=== PATIENT | female | born 1995 | race Caucasian/White ===

== ENCOUNTER 2017-01-30 20:00 | Observation (INO) | payer BC ==
[~2017-01-30] VITALS: Ht 177.8 cm; Wt 71.1 kg
[2017-01-30] MEDS ORDERED: RACEPINEPHRINE INH 2.25%, 0.5ML ONE (20:22)
[2017-01-30] MEDS ORDERED: LORazepam 2 MG/ML, 1ML ONE (20:27)
[2017-01-30] MEDS ORDERED: ALBUTEROL SULFATE 2.5 MG/3 ML NPPB SCH (20:30)
[2017-01-30] MEDS ORDERED: LORazepam 2 MG/ML, 1ML IVP ONE (20:30)
[2017-01-30] MEDS ORDERED: SODIUM CHLORIDE FLUSH 10ML SYR IVF ONE (20:30)
[2017-01-30 20:32] LABS: HEMATOCRIT 43.4 % (34.6-47.8); HEMOGLOBIN 14.8 g/dL (11.7-16.4); WHITE BLOOD COUNT 13.8 x10^3/uL (4.5-13.2)
[2017-01-30 20:43] LABS: BLOOD UREA NITROGEN 14 mg/dL (7-18)
[2017-01-30] MEDS ORDERED: RACEPINEPHRINE INH 2.25%, 0.5ML NPPB PRN (21:00)
[2017-01-30] MEDS ORDERED: DIPHENHYDRAMINE 50 MG/ML, 1ML ONE (21:17)
[2017-01-30] MEDS ORDERED: FAMOTIDINE 20 MG TABLET PO ONE (21:30)
[2017-01-30] MEDS ORDERED: DIPHENHYDRAMINE 50 MG/ML, 1ML IVPush ONE (21:30)
[2017-01-30] MEDS ORDERED: DEXAMETHASONE 4 MG/ML, 1ML IVPush ONE (21:30)
[2017-01-30] MEDS ORDERED: FAMOTIDINE 20 MG TABLET ONE (21:38)
[2017-01-30] MEDS ORDERED: SODIUM CHLORIDE 0.9% 1,000 ML IV ONE (22:52)
[2017-01-30] MEDS ORDERED: SODIUM CHLORIDE FLUSH 10ML SYR IVF PRN (23:00)
[2017-01-30] MEDS ORDERED: ACETAMINOPHEN 325 MG TABLET PO PRN (23:30)
[2017-01-30] MEDS ORDERED: FAMOTIDINE 20 MG/2 ML IVPush ONE (23:30)
[2017-01-30] MEDS ORDERED: TEMAZEPAM 15 MG CAPSULE PO PRN (23:30)
[2017-01-31 00:15] VITALS: BP 99/69
[2017-01-31] MEDS ORDERED: POTASSIUM CHLORIDE 20 MEQ TAB.ER.PRT PO ONE (00:30)
[2017-01-31] MEDS: RACEPINEPHRINE INH 2.25%, 0.5ML NPPB PRN ×4 (00:40→14:40)
[2017-01-31 04:01] VITALS: BP 111/68
[2017-01-31] MEDS: LORazepam 2 MG/ML, 1ML IVPush PRN ×3 (04:05→13:50)
[2017-01-31] MEDS ORDERED: methylPREDNISolone SOD SUCC 125 MG/2 ML ONE (04:34)
[2017-01-31] MEDS: methylPREDNISolone SOD SUCC 125 MG/2 ML IVPush SCH ×2 (04:35→05:34)
[2017-01-31] MEDS ORDERED: FAMOTIDINE 20 MG/2 ML IVPush SCH (05:26)
[2017-01-31] MEDS: CEFTRIAXONE PMX 1GM/50ML 50 ML IV SCH ×2 (05:34→17:48)
[2017-01-31] MEDS: AZITHROMYCIN 500 MG in SODIUM CHLORIDE 0.9% 250 ML IV SCH (05:47)
[2017-01-31] MEDS ORDERED: LORazepam 2 MG/ML, 1ML IVPush ONE (06:00)
[2017-01-31] MEDS ORDERED: methylPREDNISolone SOD SUCC 125 MG/2 ML IVPush ONE (08:00)
[2017-01-31 08:10] LABS: BLOOD UREA NITROGEN 12 mg/dL (7-18)
[2017-01-31] MEDS: LORATADINE 10 MG TABLET PO SCH (10:45)
[2017-01-31 14:15] VITALS: BP 107/64
[2017-01-31] MEDS: DIAZEPAM 5 MG/ML, 10ML VIAL IVPush PRN ×2 (15:51→23:04)
[2017-01-31] MEDS: DIPHENHYDRAMINE 50 MG/ML, 1ML IVPush PRN (17:13)
[2017-01-31] MEDS: ONDANSETRON 2MG/ML, 2ML IVPush PRN (20:56)
[2017-02-01] MEDS: DIPHENHYDRAMINE 50 MG/ML, 1ML IVPush PRN ×2 (03:09→15:02)
[2017-02-01] MEDS: LORazepam 2 MG/ML, 1ML IVPush PRN ×2 (03:21→14:21)
[2017-02-01 03:30] VITALS: BP 96/57
[2017-02-01] MEDS: CEFTRIAXONE PMX 1GM/50ML 50 ML IV SCH (05:30)
[2017-02-01 06:06] LABS: BLOOD UREA NITROGEN 13 mg/dL (7-18)
[2017-02-01 06:12] LABS: HEMATOCRIT 38.8 % (34.6-47.8); HEMOGLOBIN 13.1 g/dL (11.7-16.4); WHITE BLOOD COUNT 18.6 x10^3/uL (4.5-13.2)
[2017-02-01] MEDS: AZITHROMYCIN 500 MG in SODIUM CHLORIDE 0.9% 250 ML IV SCH (06:15)
[2017-02-01 07:03] VITALS: BP 96/57
[2017-02-01] MEDS: LORATADINE 10 MG TABLET PO SCH (10:38)
[2017-02-01 13:41] VITALS: BP 110/71
[2017-02-01] MEDS: ONDANSETRON 2MG/ML, 2ML IVPush PRN (14:10)
[2017-02-01] MEDS ORDERED: ONDA4TAB10 PO (14:54)
== END 2017-02-01 17:46 | disposition home or self-care (01) ==
LOC: ED 22:55 → EDIP 23:00 → INTOOBSV 23:00 → 4EST 01-31 00:09 → CCU 01-31 04:50 → 3NE 01-31 11:56
PROVIDERS: ADMIT Family Medicine; ATTEND Family Medicine
DX: J96.00 Acute respiratory failure, unspecified whether with hypoxia or hypercapnia (principal); T78.2XXA Anaphylactic shock, unspecified, initial encounter; N17.9 Acute kidney failure, unspecified; E87.6 Hypokalemia; M06.9 Rheumatoid arthritis, unspecified
CPT/HCPCS: 36415; 70360; 71020; 80048; 82040; 83735; 85025; 85379; 87040; 87081; 93005; 94640; 96365; 96366; 96367; 96375; 96376; 99285; G0378; J0456; J0696; J1200; J2060; J2405; J2930; J3360; J7050; J7512; J7613; S0028

== ENCOUNTER 2017-11-12 17:33 | Emergency (ER) | payer BC, MEDICAID ==
[~2017-11-12] VITALS: Ht 172.7 cm; Wt 61.4 kg
[~2017-11-12 17:33] MED LIST: ONDA4TAB10 PO
[2017-11-12 17:50] VITALS: BP 89/35
[2017-11-12 18:31] LABS: BASOPHILS # (AUTO) 0.03 x10^3/uL (0-0.3); BASOPHILS % (AUTO) 0 % (0-1); EOSINOPHILS # (AUTO) 0.02 x10^3/uL (0-0.8); EOSINOPHILS % (AUTO) 0 % (1-7); LYMPHOCYTES # (AUTO) 2.74 x10^3/uL (1-6.1); LYMPHOCYTES % (AUTO) 26 % (22-44); MD NO; MEAN CORPUSCULAR HEMOGLOBIN 31.2 pg (27.0-34.8); MEAN CORPUSCULAR HGB CONC 34.1 g/dL (32.4-35.8); MEAN CORPUSCULAR VOLUME 91.3 fL (80-100); MEAN PLATELET VOLUME 8.5 fL (7.4-10.4); MONOCYTES # (AUTO) 0.69 x10^3/uL (0-1.4); MONOCYTES % (AUTO) 7 % (2-9); NEUTROPHILS # (AUTO) 7.06 x10^3/uL (1.8-8.0); NEUTROPHILS % (AUTO) 67 % (42-75); PLATELET COUNT 296 x10^3/uL (130-400); RED BLOOD COUNT 4.39 x10^6/uL (3.82-5.3); RED CELL DISTRIBUTION WIDTH 12.7 % (9.6-15.2)
[2017-11-12 18:42] LABS: ALBUMIN 3.8 g/dL (3.4-5.0); ANION GAP 13 mmol/L (5-15); CALCIUM 9.2 mg/dL (8.5-10.1); CHLORIDE 108 mmol/L (98-107)
[2017-11-12 19:55] LABS: MICROSCOPIC INDICATED
[2017-11-12 20:05] LABS: CULTURE INDICATED? YES
== END 2017-11-12 19:52 | disposition left against medical advice (07) ==
LOC: ED 18:14
DX: O20.9 Hemorrhage in early pregnancy, unspecified (principal); O21.9 Vomiting of pregnancy, unspecified; O26.891 Other specified pregnancy related conditions, first trimester; M06.9 Rheumatoid arthritis, unspecified; Z88.0 Allergy status to penicillin; Z3A.09 9 weeks gestation of pregnancy
CPT/HCPCS: 36415; 76801; 80048; 81001; 82040; 84702; 85025; 86901; 87077; 87086; 87186; 99285

== ENCOUNTER → 2018-05-05 | Outpatient (CLI) | payer MEDICAID | END | disposition home or self-care (01) | LOC: RAD 16:46 | PROVIDERS: ATTEND Family Medicine | DX: R31.9 Hematuria, unspecified (principal) | CPT/HCPCS: 76770 ==

== ENCOUNTER 2018-08-26 23:08 | Emergency (ER) | payer MEDICAID ==
[~2018-08-26] VITALS: Ht 177.8 cm; Wt 57.6 kg
[2018-08-26 23:12] VITALS: BP 110/69
[2018-08-27] MEDS ORDERED: LIDOCAINE-MPF 1%, 5ML INFIL ONE
[2018-08-27] MEDS ORDERED: LIDOCAINE-MPF 1%, 5ML ONE (00:03)
== END 2018-08-27 00:56 | disposition home or self-care (01) ==
LOC: ED 23:46
DX: L03.011 Cellulitis of right finger (principal)
CPT/HCPCS: 10060; 99283

== ENCOUNTER 2018-10-28 18:57 | Emergency (ER) | payer MEDICAID ==
[~2018-10-28] VITALS: Ht 177.8 cm; Wt 56.2 kg
[2018-10-28 19:22] VITALS: BP 110/83
== END 2018-10-28 19:57 | disposition home or self-care (01) ==
LOC: ED 19:41
DX: K11.5 Sialolithiasis (principal); F17.200 Nicotine dependence, unspecified, uncomplicated
CPT/HCPCS: 99282

== ENCOUNTER 2019-01-17 11:35 | Emergency (ER) | payer MEDICAID ==
[~2019-01-17] VITALS: Ht 175.3 cm; Wt 59.4 kg
[2019-01-17 11:45] VITALS: BP 119/78
--- NOTE | 2019-01-17 12:14 | NUR ---
cough congestion that pt attributes to allergies. pt feels shaky, sweaty hands. pt states she took singulair last night for first time. she also states she smoked marijuana that was not from a dispensary. pt wondering if one of those reasons why she is feeling anxious
[2019-01-17 12:28] LABS: BASOPHILS # (AUTO) 0.02 x10^3/uL (0-0.1); BASOPHILS % (AUTO) 0 % (0-1); EOSINOPHILS # (AUTO) 0.01 x10^3/uL (0-0.4); EOSINOPHILS % (AUTO) 0 % (1-7); LYMPHOCYTES # (AUTO) 1.58 x10^3/uL (1-3.4); LYMPHOCYTES % (AUTO) 14 % (22-44); MD NO; MEAN CORPUSCULAR HEMOGLOBIN 30.8 pg (27.0-34.8); MEAN CORPUSCULAR HGB CONC 33.3 g/dL (32.4-35.8); MEAN CORPUSCULAR VOLUME 92.6 fL (80-100); MEAN PLATELET VOLUME 7.8 fL (7.4-10.4); MONOCYTES # (AUTO) 0.46 x10^3/uL (0.2-0.8); MONOCYTES % (AUTO) 4 % (2-9); NEUTROPHILS # (AUTO) 9.63 x10^3/uL (1.8-6.8); NEUTROPHILS % (AUTO) 82 % (42-75); PLATELET COUNT 313 x10^3/uL (130-400); RED BLOOD COUNT 4.51 x10^6/uL (3.82-5.3); RED CELL DISTRIBUTION WIDTH 12.9 % (9.6-15.2)
[2019-01-17] MEDS ORDERED: LORazepam 1MG TABLET ONE (12:29)
[2019-01-17] MEDS ORDERED: LORazepam 1MG TABLET PO ONE (12:30)
[2019-01-17 12:35] LABS: ALBUMIN 4.4 g/dL (3.4-5.0); ANION GAP 6 mmol/L (5-15); CHLORIDE 107 mmol/L (98-107); CREATININE 0.71 mg/dL (0.55-1.02)
== END 2019-01-17 14:08 | disposition home or self-care (01) ==
LOC: ED 14:02
DX: T78.49XA Other allergy, initial encounter (principal); M06.9 Rheumatoid arthritis, unspecified; X58.XXXA Exposure to other specified factors, initial encounter
CPT/HCPCS: 36415; 71046; 80048; 82040; 84703; 85025; 99284

== ENCOUNTER 2019-06-12 16:41 | Emergency (ER) | payer MEDICAID, OTHER ==
[~2019-06-12] VITALS: Ht 177.8 cm; Wt 56.5 kg
[2019-06-12 16:46] VITALS: BP 106/73
== END 2019-06-12 18:37 | disposition home or self-care (01) ==
LOC: ED 16:55
DX: G44.319 Acute post-traumatic headache, not intractable (principal); M06.9 Rheumatoid arthritis, unspecified; F17.200 Nicotine dependence, unspecified, uncomplicated
CPT/HCPCS: 70450; 99284

== ENCOUNTER 2020-02-11 20:24 | Emergency (ER) | payer OTHER ==
[~2020-02-11] VITALS: Ht 177.8 cm; Wt 57.1 kg
[2020-02-11 21:36] VITALS: BP 105/60
== END 2020-02-11 21:38 | disposition home or self-care (01) ==
LOC: ED 20:55
DX: L03.211 Cellulitis of face (principal); R21 Rash and other nonspecific skin eruption; M19.90 Unspecified osteoarthritis, unspecified site
CPT/HCPCS: 99283

== ENCOUNTER → 2020-06-08 | Outpatient (CLI) | payer MEDICAID | END | disposition home or self-care (01) | LOC: STAR 15:49 | PROVIDERS: ATTEND Internal Medicine | DX: Z20.822 Contact with and (suspected) exposure to COVID-19 (principal) | CPT/HCPCS: U0003 ==

== ENCOUNTER 2020-06-11 13:11 | Day surgery (SDC) | payer MEDICAID ==
[~2020-06-11] VITALS: Ht 177.8 cm; Wt 55.6 kg
[2020-06-11] MEDS ORDERED: NO HOME MEDS PER PT (13:44)
[2020-06-11] MEDS ORDERED: [UNRECOGNIZED DRUG - OTHER] PO (13:47)
[2020-06-11] MEDS ORDERED: LACTATED RINGERS 1,000 ML IV SCH (14:00)
[2020-06-11] MEDS ORDERED: CHLORHEXIDINE 15 ML UDC PO ONE (14:00)
[2020-06-11 14:02] LABS: HCG UR SG 1.017 (1.003-1.030)
[2020-06-11 14:09] VITALS: BP 115/77
[2020-06-11 14:23] LABS: INTERNATIONAL NORMALIZED RATIO 1.03 (0.93-1.1)
[2020-06-11] MEDS ORDERED: MIDAZOLAM 1 MG/ML, 2ML ONE (15:48)
[2020-06-11] MEDS ORDERED: FENTANYL PF 100 MCG/2ML ONE (15:48)
[2020-06-11] MEDS ORDERED: DEXAMETHASONE 4 MG/ML, 1ML ONE (15:56)
[2020-06-11] MEDS ORDERED: ROCURONIUM 10 MG/ML,10ML ONE (15:56)
[2020-06-11] MEDS ORDERED: CEFAZOLIN 1,000 MG ONE (15:56)
[2020-06-11] MEDS ORDERED: ONDANSETRON 2MG/ML, 2ML ONE (15:56)
[2020-06-11] MEDS ORDERED: SUCCINYLCHOLINE 20 MG/ML, 10ML ONE (15:56)
[2020-06-11] MEDS ORDERED: PROPOFOL 10 MG/ML, 20ML ONE (15:56)
[2020-06-11] MEDS ORDERED: ACETAMINOPHEN 650 MG/20.3 ML UDC ONE (17:00)
[2020-06-11] MEDS ORDERED: OXYcodone 5 MG/5 ML ORAL.SOL UDC ONE (17:00)
[2020-06-11] MEDS ORDERED: ACETAMINOPHEN 325 MG TABLET PO PRN (17:30)
[2020-06-11] MEDS ORDERED: EPHEDRINE 50 MG/ML, 1ML IVPush PRN (17:30)
[2020-06-11] MEDS ORDERED: FENTANYL PF 100 MCG/2ML IV PRN (17:30)
[2020-06-11] MEDS ORDERED: OXYcodone 5 MG/5 ML ORAL.SOL UDC PO PRN (17:30)
[2020-06-11] MEDS ORDERED: LABETALOL 5MG/ML, 20ML IV PRN (17:30)
[2020-06-11] MEDS ORDERED: ONDANSETRON 2MG/ML, 2ML IVPush PRN (17:30)
[2020-06-11] MEDS ORDERED: PROMETHAZINE 25 MG/ML, 1ML IVPush PRN (17:30)
== END 2020-06-11 18:15 | disposition home or self-care (01) ==
LOC: OUT 13:11
PROVIDERS: ATTEND Urology
DX: Z46.6 Encounter for fitting and adjustment of urinary device (principal); F41.9 Anxiety disorder, unspecified; F32.9 Major depressive disorder, single episode, unspecified; J45.909 Unspecified asthma, uncomplicated; M06.9 Rheumatoid arthritis, unspecified; F12.90 Cannabis use, unspecified, uncomplicated; Z79.01 Long term (current) use of anticoagulants; Z87.442 Personal history of urinary calculi; Z87.891 Personal history of nicotine dependence; Z88.2 Allergy status to sulfonamides; Z91.040 Latex allergy status; Z98.890 Other specified postprocedural states
CPT/HCPCS: 36415; 52351; 81025; 85610; J0330; J0690; J1100; J2250; J2405; J2704; J3010